=== PATIENT | female | born 1945 | race Caucasian/White ===

== ENCOUNTER 2023-12-08 14:35 | Emergency (ER) | payer OTHER ==
[2023-12-08 15:13] VITALS: RESP 18; TEMP 99; BMI 18.3
[2023-12-08 16:27] LABS: HEMATOCRIT 30.1 % (32.4-45.2); HEMOGLOBIN 10.2 GM/dL (10.7-15.3); LYMPH % 15.2 % (8-40); MCH 31.7 pg (25.7-33.7); MEAN CELL VOLUME 93.3 fl (80-96); MEAN PLT VOLUME 8.3 fl (7.5-11.1); NEUT % 72.2 % (42.8-82.8); PLATELET COUNT 201 10^3/uL (134-434); RBC 3.22 M/mm3 (3.60-5.2); RDW 14.2 % (11.6-15.6); WHITE BLOOD COUNT 10.2 K/mm3 (4.0-10.0)
[2023-12-08 16:28] LABS: BASO % 0.8 % (0-2.0); EOS % 0.2 % (0-4.5); MONO % 11.6 % (3.8-10.2)
[2023-12-08 16:37] LABS: INR 0.95 (0.83-1.09); PROTHROMBIN TIME (PATIENT) 10.9 SEC (9.7-13.0)
[2023-12-08 16:39] LABS: ACTIVATED PTT 30.9 SECONDS (25.2-36.5)
[2023-12-08] MEDS ORDERED: ACETAMINOPHEN INJECTION 100 ML ONE (17:04)
[2023-12-08 17:07] LABS: POTASSIUM 4.3 mmol/L (3.5-5.1)
[2023-12-08 17:08] LABS: CALCIUM 9.3 mg/dL (8.5-10.1)
[2023-12-08 17:09] LABS: ALBUMIN 3.1 g/dl (3.4-5.0); MAGNESIUM 1.9 mg/dL (1.8-2.4)
[2023-12-08 17:13] LABS: CREATININE 0.8 mg/dL (0.55-1.3); PHOSPHOROUS 2.9 mg/dL (2.5-4.9)
[2023-12-08 17:14] LABS: TOT PROT 6.4 g/dl (6.4-8.2)
[2023-12-08] MEDS: ACETAMINOPHEN 1000 MG/100 ML BAG IVPB ONE (17:41)
[2023-12-08 17:57] LABS: PH,URINE 6.5 (5.0-8.0); URINE APPEARANCE CLEAR; URINE BILIRUBIN NEGATIVE (NEGATIVE); URINE COLOR YELLOW; URINE GLUCOSE (UA) NEGATIVE (NEGATIVE); URINE KETONE NEGATIVE (NEGATIVE); URINE LEUK ESTERASE NEGATIVE (NEGATIVE); URINE NITRITE NEGATIVE (NEGATIVE); URINE PROTEIN NEGATIVE (NEGATIVE)
[2023-12-08 23:34] VITALS: BP 97/60; PULSE 76
== END 2023-12-09 00:57 ==
LOC: JER 14:35
PROC: 3E033NZ Introduction of Analgesics, Hypnotics, Sedatives into Peripheral Vein, Percutaneous Approach (ICD-10-PCS; principal; 2023-12-08)
DX: M79.651 Pain in right thigh (principal); R51.9 Headache, unspecified; W01.198A Fall on same level from slipping, tripping and stumbling with subsequent striking against other object, initial encounter; Z20.822 Contact with and (suspected) exposure to COVID-19
CPT/HCPCS: 0241U-QW; 36415; 70450-TC; 71045-TC-FY; 72125-TC; 72170-TC-FY; 73502-TC-RT-FY; 80053; 81003; 83735; 84100; 84484; 85025; 85610; 85730; 86850; 86900; 86901; 87086; 93005; 93010; 96374; 99285-25; J0131